=== PATIENT | female | born 1990 | race Caucasian/White ===

== ENCOUNTER 2022-03-19 12:41 | Emergency (ER) | payer OTHER ==
[2022-03-19 13:55] LABS: BASOPHIL 0.3 % (0-2); EOSINOPHIL 1.9 % (0-5); HCT 32.9 % (37.0-47.0); HGB 10.7 g/dl (12.5-16.0); LYMPHOCYTE 24.7 % (15-48); MCH 29.1 pg (25.0-31.0); MCHC 32.5 g/dL (32.0-36.0); MCV 89.4 fL (78.0-100.0); MONOCYTE 8.3 % (0-12); MPV 9.8 fL (6.0-9.5); NEUTROPHIL 64.5 % (41-80); NRBC 0; PLT 200 K/uL (150-400); RBC 3.68 M/uL (4.20-5.40); RDW 13.2 % (11.5-14.0); WBC 5.9 K/uL (4.0-10.5)
[2022-03-19 14:07] LABS: BUN/CREAT RATIO (CALC) 16.4 RATIO; CREATININE 0.55 mg/dL (0.51-0.95)
== END 2022-03-19 15:24 | disposition home or self-care (01) ==
LOC: FER 12:41
PROVIDERS: Emergency Medicine
DX: O02.1 Missed abortion (principal)
CPT/HCPCS: 36415; 76810; 80048; 84702; 85025; 86900; 86901